=== PATIENT | male | born 1950 | race Caucasian/White ===

== ENCOUNTER 2017-05-22 15:09 | Observation (INO) | payer MEDICARE, BC ==
--- NOTE | 2017-05-22 15:13 | EDM.PDOC ---
ED HPI GENERAL MEDICAL PROBLEM - General Chief Complaint: Neuro Symptoms/Deficits Stated Complaint: POSSIBLE STROKE Time Seen by Provider: 05/22/17 15:09 Source of Information: Reports: Patient, Old Records, RN, RN Notes Reviewed History Limitations: Reports: No Limitations - History of Present Illness INITIAL COMMENTS - FREE TEXT/NARRATIVE: Patient arrived by POV after [facility] by Dr. Hernandez. States he had onset of posterior headache this morning with nausea. No vomiting. No fever. No chills. While driving downtown, he began to have decrease in vision and onset of right temporal headache, which felt like a snapping sending an electric shock through the frontal area and to the left frontal and parietal area. At that time his vision tunnelled down until it looked like he was looking through a tube no more than 2cm in diameter. This lasted several minutes and then as his vision partially improved, he drove himself to the [facility]. While there his vision returned to normal and Dr. Hernandez found no acute changes on eye exam. His vision is "nearly back to normal". His headache and nausea remains. Onset: Today Location: Reports: Head Quality: Reports: Ache Severity: Severe Improves with: Reports: None Worsens with: Reports: None Associated Symptoms: Reports: No Other Symptoms Head Pain Score (Numeric/FACES): 7 - Related Data Allergies Allergy/AdvReac Type Severity Reaction Status Date / Time No Known Allergies Allergy Verified 05/22/17 15:52 Home Meds: Home Meds Acetaminophen [Tylenol Extra Strength] 500 mg PO ASDIRECTED PRN 05/22/17 [ History] Albuterol [Proair HFA] 2 puff INH BID PRN 05/22/17 [History] Cetirizine [ZyrTEC] 10 mg PO DAILY 05/22/17 [History] Multivitamin [Multi-Day Vitamins] 1 tab PO DAILY 05/22/17 [History] Past Medical History HEENT History: Reports: None (Retinal hemorrhage.), Other (See Below) Other HEENT History: FLOATERS Cardiovascular History: Reports: None Respiratory History: Reports: SOB Musculoskeletal History: Reports: Arthritis, Back Pain, Chronic, Other (See Below) Other Musculoskeletal History: ARTHRITIS THROUGHOUT SPINE AND BILATERAL HANDS Neurological History: Reports: Concussion, Headaches, Chronic, Other (See Below) Other Neuro History: HEAD INJURY THAT TOOK TWO YEARS TO HEAL IN THE LATE 80'S Psychiatric History: Reports: None Hematologic History: Reports: None Oncologic (Cancer) History: Reports: Other (See Below) Other Oncologic History: 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 Dermatologic History: - Infectious Disease History Infectious Disease History: Reports: Chicken Pox - Past Surgical History HEENT Surgical History: Reports: Eye Surgery GI Surgical History: Reports: Colonoscopy, EGD, Hernia, Inguinal Musculoskeletal Surgical History: Reports: Knee Replacement, Other (See Below) Dermatological Surgical History: Reports: Skin Biopsy, Other (See Below) Social & Family History - Family History Family Medical History: Noncontributory - Tobacco Use Smoking Status *Q: Never Smoker Second Hand Smoke Exposure: No - Caffeine Use Caffeine Use: Reports: Coffee, Soda Other Caffeine Use: 4 CUPS OF COFFEE IN THE AM - Alcohol Use Days Per Week of Alcohol Use: 1 - Recreational Drug Use Recreational Drug Use: No Drug Use in Last 12 Months: No ED ROS GENERAL - Review of Systems Review Of Systems: ROS reveals no pertinent complaints other than HPI. ED EXAM, NEURO - Physical Exam Exam: See Below Exam Limited By: No Limitations General Appearance: Alert, WD/WN, No Apparent Distress, Other (uncomfortable appearing. ) Eye Exam: Bilateral Eye: PERRL, Other (chronic strabismus. See eye exam from Dr. Hernandez.) Ears: Normal External Exam, Normal Canal, Hearing Grossly Normal, Normal TMs Nose: Normal Inspection, Normal Mucosa, No Blood Throat/Mouth: Normal Inspection, Normal Lips, Normal Teeth, Normal Gums, Normal Oropharynx, Normal Voice, No Airway Compromise Head Exam: Atraumatic, Normocephalic Neck: Normal Inspection, Supple, Non-Tender, Full Range of Motion. No: Carotid Bruit, Lymphadenopathy (L), Lymphadenopathy (R) Respiratory/Chest: No Respiratory Distress, Lungs Clear, Normal Breath Sounds, No Accessory Muscle Use, Chest Non-Tender Cardiovascular: Normal Peripheral Pulses, Regular Rate, Rhythm, No Edema, No Gallop, No JVD, No Murmur, No Rub GI/Abdominal: Normal Bowel Sounds, Soft, Non-Tender, No Organomegaly, No Distention, No Abnormal Bruit, No Mass (Male) Exam: Deferred Rectal (Males) Exam: Deferred Neurological: Alert, Normal Mood/Affect, Normal Dorsiflexion, CN II-XII Intact, Normal Plantar Flexion, Normal Gait, Normal Reflexes, No Motor/Sensory Deficits , Oriented x 3 Back Exam: Normal Inspection, Full Range of Motion, NT Extremities: Normal Inspection, Normal Range of Motion, Non-Tender, No Pedal Edema, Normal Capillary Refill Psychiatric: Anxious Skin Exam: Warm, Dry, Intact, Normal Color, No Rash EKG INTERPRETATION EKG Date: 05/22/17 Time: 15:30 Rhythm: Other (sinus rhythm) Rate (Beats/Min): 65 [place]: Normal P-Wave: Present QRS: Normal ST-T: Normal QT: Normal Course - Vital Signs Last Recorded V/S: Last Vital Signs Temp 36.6 C 05/22/17 15:37 Pulse 64 05/22/17 15:57 Resp 16 05/22/17 15:57 BP 125/66 05/22/17 15:57 Pulse Ox 98 05/22/17 15:57 - Orders/Labs/Meds Orders: Active Orders 24 hr Category Date Time Status EKG 12 Lead [EKG Documentation Completion] [RC] STAT Care 05/22/17 15:11 Active NIH Stroke Scale [RC] ASDIRECTED Care 05/22/17 15:11 Active Peripheral IV Care [RC] . DIRECTED Care 05/22/17 15:11 Active DRUG SCREEN URINE BIORAD [URCHEM] Stat Lab 05/22/17 15:11 Uncollected ESR [SEDIMENTATION RATE MANUAL] [HEME] Stat Lab 05/22/17 15:31 Received UA W/MICROSCOPIC [URIN] Stat Lab 05/22/17 15:11 Uncollected Sodium Chloride 0.9% [Normal Saline] 1,000 ml Med 05/22/17 16:36 Active IV .BOLUS Sodium Chloride 0.9% [Saline Flush] Med 05/22/17 15:10 Active 10 ml FLUSH ASDIRECTED PRN Peripheral IV Insertion Adult [OM.PC] Stat Oth 05/22/17 15:11 Ordered Medication Orders Sodium Chloride (Normal Saline) 1,000 mls @ 999 mls/hr IV .BOLUS ONE Stop: 05/22/17 17:36 Last Admin: 05/22/17 16:44 Dose: 999 mls/hr Sodium Chloride (Saline Flush) 10 ml FLUSH ASDIRECTED PRN PRN Reason: Keep Vein Open Last Admin: 05/22/17 16:24 Dose: 10 ml Admin: 05/22/17 15:35 Dose: 10 ml Labs: Laboratory Tests 05/22/17 05/22/17 05/22/17 Range/Units 15:31 15:31 15:31 WBC 5.5 (5.0-10.0) 10^3/uL RBC 3.76 L (4.6-6.2) 10^6/uL Hgb 13.0 L (14.0-18.0) g/dL Hct 37.9 L (40.0-54.0) % MCV 100.8 H (80-100) fL MCH 34.6 H (27.0-34.0) pg MCHC 34.3 (33.0-35.0) g/dL Plt Count 117 L (150-450) 10^3/uL Neut % (Auto) 73.9 (42.2-75.2) % Lymph % (Auto) 17.5 L (20.5-50.1) % Cole % (Auto) 8.0 (2-8) % Eos % (Auto) 0.4 L (1.0-3.0) % Baso % (Auto) 0.2 (0.0-1.0) % PT 9.8 (9.0-12.0) SEC INR 1.0 (0.9-1.2) APTT 25.8 (22.0-34.0) SEC Sodium 137 (135-145) mmol/L Potassium 4.3 (3.6-5.0) mmol/L Chloride 102 (101-111) mmol/L Carbon Dioxide 26.0 (21.0-31.0) mmol/L Anion Gap 13.3 BUN 20 H (7-18) mg/dL Creatinine 1.2 (0.6-1.3) mg/dL Est Cr Clr Drug Dosing 65.56 mL/min Estimated GFR (MDRD) > 60 BUN/Creatinine Ratio 16.66 Glucose 131 H (74-105) mg/dL Calcium 9.6 (8.4-10.2) mg/dl Total Bilirubin 0.7 (0.2-1.0) mg/dL AST 29 (10-42) IU/L ALT 31 (10-60) IU/L Alkaline Phosphatase 46 (42-121) IU/L Creatine Kinase 171 (26-174) IU/L Troponin I < 0.02 (0.00-0.02) ng/ml C-Reactive Protein (0.0-1.3) mg/dL Total Protein 6.7 (6.7-8.2) g/dl Albumin 3.8 (3.2-5.5) g/dl Globulin 2.9 Albumin/Globulin Ratio 1.31 Ethyl Alcohol < 5 mg/dL 05/22/17 Range/Units 15:31 WBC (5.0-10.0) 10^3/uL RBC (4.6-6.2) 10^6/uL Hgb (14.0-18.0) g/dL Hct (40.0-54.0) % MCV (80-100) fL MCH (27.0-34.0) pg MCHC (33.0-35.0) g/dL Plt Count (150-450) 10^3/uL Neut % (Auto) (42.2-75.2) % Lymph % (Auto) (20.5-50.1) % Cole % (Auto) (2-8) % Eos % (Auto) (1.0-3.0) % Baso % (Auto) (0.0-1.0) % PT (9.0-12.0) SEC INR (0.9-1.2) APTT (22.0-34.0) SEC Sodium (135-145) mmol/L Potassium (3.6-5.0) mmol/L Chloride (101-111) mmol/L Carbon Dioxide (21.0-31.0) mmol/L Anion Gap BUN (7-18) mg/dL Creatinine (0.6-1.3) mg/dL Est Cr Clr Drug Dosing mL/min Estimated GFR (MDRD) BUN/Creatinine Ratio Glucose (74-105) mg/dL Calcium (8.4-10.2) mg/dl Total Bilirubin (0.2-1.0) mg/dL AST (10-42) IU/L ALT (10-60) IU/L Alkaline Phosphatase (42-121) IU/L Creatine Kinase (26-174) IU/L Troponin I (0.00-0.02) ng/ml C-Reactive Protein 0.8 (0.0-1.3) mg/dL Total Protein (6.7-8.2) g/dl Albumin (3.2-5.5) g/dl Globulin Albumin/Globulin Ratio Ethyl Alcohol mg/dL Meds: Medications Generic Name Dose Route Start Last Admin Trade Name Freq PRN Reason Stop Dose Admin Sodium Chloride 1,000 mls @ 999 mls/hr 05/22/17 16:36 05/22/17 16:44 Normal Saline IV 05/22/17 17:36 999 mls/hr .BOLUS ONE Administration Sodium Chloride 10 ml 05/22/17 15:10 05/22/17 16:24 Saline Flush FLUSH 10 ml ASDIRECTED PRN Administration Keep Vein Open Discontinued Medications Generic Name Dose Route Start Last Admin Trade Name Freq PRN Reason Stop Dose Admin Hydromorphone HCl 1 mg 05/22/17 16:11 05/22/17 16:24 Dilaudid IVPUSH 05/22/17 16:12 1 mg ONETIME ONE Administration Methylprednisolone Sodium Succinate 125 mg 05/22/17 16:11 05/22/17 16:23 Solu-Medrol IVPUSH 05/22/17 16:12 125 mg ONETIME ONE Administration Ondansetron HCl 4 mg 05/22/17 16:11 05/22/17 16:24 Zofran IV 05/22/17 16:12 4 mg ONETIME ONE Administration - Radiology Interpretation Free Text/Narrative:: CT head: Microvascular ischemic changes. No intracranial mass, hydrocephalus or bleed. See rad report. Departure - Departure Time of Disposition: 17:27 ((Admnit Dr. Traylor)) Disposition: Admitted As Inpatient 66 Condition: Serious Clinical Impression: Visual changes Acute headache Qualifiers: Headache type: unspecified Intractability: intractable Qualified Code(s): R51 - Headache TIA (transient ischemic attack) Qualifiers: Transient cerebral ischemia type: unspecified Qualified Code(s): G45.9 - Transient cerebral ischemic attack, unspecified - Discharge Information Forms: ED Department Discharge - My Orders Last 24 Hours: My Active Orders 05/22/17 15:10 Sodium Chloride 0.9% [Saline Flush] 10 ml FLUSH ASDIRECTED PRN 05/22/17 15:11 EKG 12 Lead [EKG Documentation Completion] [RC] STAT NIH Stroke Scale [RC] ASDIRECTED Peripheral IV Care [RC] . DIRECTED DRUG SCREEN URINE BIORAD [URCHEM] Stat UA W/MICROSCOPIC [URIN] Stat Peripheral IV Insertion Adult [OM.PC] Stat 05/22/17 15:31 ESR [SEDIMENTATION RATE MANUAL] [HEME] Stat 05/22/17 16:36 Sodium Chloride 0.9% [Normal Saline] 1,000 ml IV .BOLUS - Assessment/Plan Last 24 Hours: My Active Orders 05/22/17 15:10 Sodium Chloride 0.9% [Saline Flush] 10 ml FLUSH ASDIRECTED PRN 05/22/17 15:11 EKG 12 Lead [EKG Documentation Completion] [RC] STAT NIH Stroke Scale [RC] ASDIRECTED Peripheral IV Care [RC] . DIRECTED DRUG SCREEN URINE BIORAD [URCHEM] Stat UA W/MICROSCOPIC [URIN] Stat Peripheral IV Insertion Adult [OM.PC] Stat 05/22/17 15:31 ESR [SEDIMENTATION RATE MANUAL] [HEME] Stat 05/22/17 16:36 Sodium Chloride 0.9% [Normal Saline] 1,000 ml IV .BOLUS
[2017-05-22] MEDS: Sodium Chloride 0.9% 10 ML Syringe FLUSH PRN ×2 (15:35→16:24)
--- NOTE | 2017-05-22 15:53 | CT ---
Clinical history: 67-year-old male possible CVA (frontal headache, dizziness and visual changes). Scan technique: Volume acquisition of data emergency unenhanced CT scan of the head and brain obtain ed with patient lying supine on the Siemens multi slice scanner [facility]. All data archived in the PACS system for storage, reformatting and study (bone/brain wi ndows). Interpretation: Uniformly thick bony calvarium. Subtle mucoperiosteal thickening maxillary antra but otherwise clear pneumatization paranasal and ma stoid sinuses. Nasal septum is straight in the midline. No sign of supratentorial or posterior fossa mass lesion this patient with atrophy and underlying mi rror-image normal ventricles. Scanner microvascular ischemic changes but no cerebral edema or acute intracerebral/intraventricular /subarachnoid bleed. Cerebellum and brainstem unremarkable. No abnormal extracerebral/intracranial epidural or subdural h ematoma. CONCLUSION: Microvascular ischemic changes. No intracranial mass, hydrocephalus or bleed.
[2017-05-22 16:04] LABS: CHLORIDE,CL 102 mmol/L (101-111); SODIUM,NA 137 mmol/L (135-145)
[2017-05-22] MEDS ORDERED: methylPREDNISolone Sodium Succinate 125 MG/2 ML SDV IVPUSH ONE (16:11)
[2017-05-22] MEDS ORDERED: HYDROmorphone 1 MG/ML Syringe IVPUSH ONE (16:11)
[2017-05-22] MEDS ORDERED: Ondansetron 4 MG/2 ML SDV IV ONE (16:11)
[2017-05-22] MEDS ORDERED: Sodium Chloride 0.9% 1,000 ML IV ONE (16:36)
[2017-05-22] MEDS ORDERED: Albuterol 6.7 GM Inhaler INH PRN (17:41)
[2017-05-22] MEDS ORDERED: oxyCODONE 5 MG Tab PO PRN (17:43)
[2017-05-22] MEDS ORDERED: Ondansetron 4 MG Tab.DIS PO PRN (17:43)
[2017-05-22] MEDS ORDERED: Ibuprofen 400 MG Tab PO PRN (17:43)
[2017-05-22] MEDS ORDERED: Promethazine 25 MG Tab PO PRN (17:43)
[2017-05-22] MEDS ORDERED: Zolpidem 5 MG Tab PO PRN (17:43)
[2017-05-22] MEDS ORDERED: Morphine 2 MG/ML Syringe IVPUSH PRN (17:43)
[2017-05-22] MEDS ORDERED: Acetaminophen 325 MG Tab PO PRN (17:43)
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
[2017-05-22] MEDS: Heparin Sodium 5,000 Units/ML Vial SUBCUT SCH (22:13)
[2017-05-23] MEDS: Heparin Sodium 5,000 Units/ML Vial SUBCUT SCH (05:50)
[2017-05-23 06:56] LABS: CHLORIDE,CL 103 mmol/L (101-111); SODIUM,NA 137 mmol/L (135-145)
[2017-05-23] MEDS ORDERED: MULTIVITAMIN PO SCH (09:00)
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
[2017-05-23 12:55] VITALS: BP 136/61
--- NOTE | 2017-05-26 10:05 | EKG ---
05/22/2017- BRITTNY THAKKAR - EKG per my reading shows sinus rhythm at the rate of 65 with no acute changes. MOD /[id number]
== END 2017-05-23 11:30 | disposition home or self-care (01) ==
LOC: DL.ED 15:09 → DL.MS 17:13
PROVIDERS: ADMIT Internal Medicine; ATTEND Internal Medicine
DX: R51 Headache (principal); G45.9 Transient cerebral ischemic attack, unspecified; H53.8 Other visual disturbances; Z79.899 Other long term (current) drug therapy; Z98.890 Other specified postprocedural states; Z96.659 Presence of unspecified artificial knee joint; J30.1 Allergic rhinitis due to pollen
CPT/HCPCS: 36415; 70450; 80048; 80053; 82550; 84484; 85025; 85610; 85651; 85730; 86140; 93005; 93010; 96372; 96374; 96375; 99284; 99285; A9270; G0378; G0480; J1170; J1644; J2405; J2930; J7030; J7050

== ENCOUNTER 2018-06-17 11:28 | Emergency (ER) | payer MEDICARE, BC ==
--- NOTE | 2018-06-17 12:42 | CR ---
Clinical history: 68-year-old male pain. Interpretation: No acute cardiopulmonary abnormality. Old healed fracture left clavicle. Upright AP portable chest film (external gambling monitor leads) reveals normal cardiac silhouette wit hout cephalization of vascular flow, alveolar edema or dependent pleural fluid accumulation (left-niecy ed aortic arch). No lung mass, hilar lymphadenopathy or focal lobar pneumonia. No pneumothorax. CONCLUSION: No acute cardiopulmonary abnormality. Unchanged except for technique since 13 Mar 2008 ex am.
[2018-06-17 12:46] VITALS: BP 130/71
[2018-06-17 12:46] LABS: ANION GAP 11.7; CHLORIDE,CL 102 mmol/L (101-111); SODIUM,NA 136 mmol/L (135-145)
--- NOTE | 2018-06-17 13:08 | EDM.PDOC ---
ED HPI GENERAL MEDICAL PROBLEM - General Chief Complaint: Chest Pain Stated Complaint: SENT BY DR ROSARIO Time Seen by Provider: 06/17/18 11:52 Source of Information: Reports: Patient, RN, RN Notes Reviewed History Limitations: Reports: No Limitations - History of Present Illness INITIAL COMMENTS - FREE TEXT/NARRATIVE: Patient presents to ER with complaint of occurrences of left sided chest pain, first episode was and again over the weekend. Last episode was yesterday at noon. Thursday he rested, took Ibuprofen and resolved. Shortness of breath with chest pain. No pain at this time. No radiation of pain. Did eat spicy foods recently. He has diarrhea. No nausea, vomiting, fever or chills. Onset: Gradual Duration: Getting Worse Location: Reports: Chest Quality: Reports: Ache Severity: Mild Improves with: Reports: None Worsens with: Reports: None Associated Symptoms: Reports: No Other Symptoms - Related Data Allergies Allergy/AdvReac Type Severity Reaction Status Date / Time mold Allergy Sneezing Verified 06/17/18 11:58 canola pollen Allergy Sneezing Uncoded 06/17/18 10:06 Home Meds: Home Meds Acetaminophen [Tylenol Extra Strength] 500 mg PO BID PRN 05/22/17 [History] Multivitamin [Multi-Day Vitamins] 1 tab PO DAILY 05/22/17 [History] Cholecalciferol (Vitamin D3) [Vitamin D3] 1,000 units PO DAILY 01/22/18 [History ] Past Medical History HEENT History: Reports: None, Other (See Below) Other HEENT History: FLOATERS. 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 IN THE LATE 80S Psychiatric History: Reports: None Endocrine/Metabolic History: Reports: None Hematologic History: Reports: Anemia, Other (See Below) (thrombocytopenia) Immunologic History: Reports: None Oncologic (Cancer) History: Reports: Other (See Below) Other Oncologic History: 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 Dermatologic History: - Infectious Disease History Infectious Disease History: Reports: Chicken Pox - Past Surgical History HEENT Surgical History: Reports: Eye Surgery GI Surgical History: Reports: Colonoscopy, EGD, Hernia, Inguinal Musculoskeletal Surgical History: Reports: Knee Replacement, Other (See Below) Dermatological Surgical History: Reports: Skin Biopsy, Other (See Below) Social & Family History - Family History Family Medical History: Noncontributory - Tobacco Use Smoking Status *Q: Never Smoker - Caffeine Use Caffeine Use: Reports: Coffee Other Caffeine Use: 4 CUPS OF COFFEE IN THE AM - Recreational Drug Use Recreational Drug Use: No ED ROS GENERAL - Review of Systems Review Of Systems: ROS reveals no pertinent complaints other than HPI. ED EXAM, GENERAL - Physical Exam Exam: See Below Exam Limited By: No Limitations General Appearance: Alert Eye Exam: Bilateral Eye: Other (right eye wonders) Ears: Normal External Exam, Normal Canal, Hearing Grossly Normal, Normal TMs Nose: Normal Inspection, Normal Mucosa, No Blood Throat/Mouth: Normal Inspection, Normal Lips, Normal Teeth, Normal Gums, Normal Oropharynx, Normal Voice, No Airway Compromise Head: Atraumatic, Normocephalic Neck: Normal Inspection, Supple, Non-Tender, Full Range of Motion Respiratory/Chest: No Respiratory Distress, Lungs Clear, Normal Breath Sounds, No Accessory Muscle Use, Chest Non-Tender Cardiovascular: Normal Peripheral Pulses, Regular Rate, Rhythm, No Edema, No Gallop, No JVD, No Murmur, No Rub GI/Abdominal: Normal Bowel Sounds, Soft, Non-Tender, No Organomegaly, No Distention, No Abnormal Bruit, No Mass (Male) Exam: Deferred Rectal (Males) Exam: Deferred Back Exam: Normal Inspection, Full Range of Motion, NT Extremities: Normal Inspection, Normal Range of Motion, Non-Tender, Normal Capillary Refill, No Pedal Edema Neurological: Alert, Oriented, CN II-XII Intact, Normal Cognition, Normal Gait, Normal Reflexes, No Motor/Sensory Deficits Psychiatric: Normal Affect, Normal Mood Skin Exam: Warm, Dry, Intact, Normal Color, No Rash EKG INTERPRETATION EKG Date: 06/17/18 Time: 11:32 Rhythm: Other (sinus rhythm) Course - Vital Signs Last Recorded V/S: Last Vital Signs Temp 98 F 06/17/18 12:45 Pulse 59 L 06/17/18 12:45 Resp 15 06/17/18 12:45 BP 130/71 06/17/18 12:45 Pulse Ox 99 06/17/18 12:45 - Orders/Labs/Meds Orders: Active Orders 24 hr Category Date Time Status EKG Documentation Completion [RC] STAT Care 06/17/18 12:04 Active UA W/MICROSCOPIC [URIN] Stat Lab 06/17/18 12:45 Ordered Labs: Laboratory Tests 06/17/18 06/17/18 06/17/18 Range/Units 12:20 12:20 12:20 WBC 4.8 L (5.0-10.0) 10^3/uL RBC 3.65 L (4.6-6.2) 10^6/uL Hgb 12.5 L (14.0-18.0) g/dL Hct 37.6 L (40.0-54.0) % MCV 103.0 H (80-100) fL MCH 34.2 H (27.0-34.0) pg MCHC 33.2 (33.0-35.0) g/dL Plt Count 108 L (150-450) 10^3/uL Neut % (Auto) 75.1 (42.2-75.2) % Lymph % (Auto) 17.4 L (20.5-50.1) % [place] % (Auto) 7.1 (2-8) % Eos % (Auto) 0.2 L (1.0-3.0) % Baso % (Auto) 0.2 (0.0-1.0) % PT 10.0 (9.0-12.0) SEC INR 1.0 (0.9-1.2) Sodium 136 (135-145) mmol/L Potassium 4.7 (3.6-5.0) mmol/L Chloride 102 (101-111) mmol/L Carbon Dioxide 27.0 (21.0-31.0) mmol/L Anion Gap 11.7 BUN 24 H (7-18) mg/dL Creatinine 1.0 (0.6-1.3) mg/dL Est Cr Clr Drug Dosing 77.60 mL/min Estimated GFR (MDRD) > 60 BUN/Creatinine Ratio 24.00 Glucose 112 H (74-105) mg/dL Calcium 9.1 (8.4-10.2) mg/dl Total Bilirubin 0.7 (0.2-1.0) mg/dL AST 29 (10-42) IU/L ALT 28 (10-60) IU/L Alkaline Phosphatase 41 L (42-121) IU/L Troponin I < 0.02 (0.00-0.02) ng/ml Total Protein 6.8 (6.7-8.2) g/dl Albumin 3.9 (3.2-5.5) g/dl Globulin 2.9 Albumin/Globulin Ratio 1.34 Urine Color (YELLOW) Urine Appearance (CLEAR) Urine pH (5.0-9.0) Ur Specific [place] (1.005-1.030) Urine Protein (NEGATIVE) Urine Glucose (UA) (NEGATIVE) Urine Ketones (NEGATIVE) Urine Occult Blood (NEGATIVE) Urine Nitrite (NEGATIVE) Urine Bilirubin (NEGATIVE) Urine Urobilinogen (0.2-1.0) mg/dL Ur Leukocyte Esterase (NEGATIVE) Urine RBC /HPF Urine WBC (0-5/HPF) /HPF Ur Epithelial Cells /HPF Urine Mucus /LPF 06/17/18 Range/Units 12:45 WBC (5.0-10.0) 10^3/uL RBC (4.6-6.2) 10^6/uL Hgb (14.0-18.0) g/dL Hct (40.0-54.0) % MCV (80-100) fL MCH (27.0-34.0) pg MCHC (33.0-35.0) g/dL Plt Count (150-450) 10^3/uL Neut % (Auto) (42.2-75.2) % Lymph % (Auto) (20.5-50.1) % [place] % (Auto) (2-8) % Eos % (Auto) (1.0-3.0) % Baso % (Auto) (0.0-1.0) % PT (9.0-12.0) SEC INR (0.9-1.2) Sodium (135-145) mmol/L Potassium (3.6-5.0) mmol/L Chloride (101-111) mmol/L Carbon Dioxide (21.0-31.0) mmol/L Anion Gap BUN (7-18) mg/dL Creatinine (0.6-1.3) mg/dL Est Cr Clr Drug Dosing mL/min Estimated GFR (MDRD) BUN/Creatinine Ratio Glucose (74-105) mg/dL Calcium (8.4-10.2) mg/dl Total Bilirubin (0.2-1.0) mg/dL AST (10-42) IU/L ALT (10-60) IU/L Alkaline Phosphatase (42-121) IU/L Troponin I (0.00-0.02) ng/ml Total Protein (6.7-8.2) g/dl Albumin (3.2-5.5) g/dl Globulin Albumin/Globulin Ratio Urine Color Yellow (YELLOW) Urine Appearance Clear (CLEAR) Urine pH 7.0 (5.0-9.0) Ur Specific [place] 1.015 (1.005-1.030) Urine Protein Negative (NEGATIVE) Urine Glucose (UA) Negative (NEGATIVE) Urine Ketones Negative (NEGATIVE) Urine Occult Blood Negative (NEGATIVE) Urine Nitrite Negative (NEGATIVE) Urine Bilirubin Negative (NEGATIVE) Urine Urobilinogen 0.2 (0.2-1.0) mg/dL Ur Leukocyte Esterase Negative (NEGATIVE) Urine RBC Not seen /HPF Urine WBC Not seen (0-5/HPF) /HPF Ur Epithelial Cells Rare /HPF Urine Mucus Rare /LPF - Radiology Interpretation Free Text/Narrative:: Chest x-ray showed no cardiopulmonary abnormality. Unchanged except for technique since March 13, 2008. See rad report. Departure - Departure Time of Disposition: 13:08 Disposition: Home, Self-Care 01 Condition: Fair Clinical Impression: Nonspecific chest pain Instructions: Nonspecific Chest Pain, [id number], Angina Pectoris, Easy-to- Read Referrals: Karen Rosario MD [Primary Care Provider] - Forms: ED Department Discharge Additional Instructions: Follow up with Dr. Rosario regarding cardiac stress test Return to the ER with any further chest pain or SOB, or other problems - My Orders Last 24 Hours: My Active Orders 06/17/18 12:04 EKG Documentation Completion [RC] STAT 06/17/18 12:45 UA W/MICROSCOPIC [URIN] Stat - Assessment/Plan Last 24 Hours: My Active Orders 06/17/18 12:04 EKG Documentation Completion [RC] STAT 06/17/18 12:45 UA W/MICROSCOPIC [URIN] Stat
== END 2018-06-17 14:25 | disposition home or self-care (01) ==
LOC: DL.ED 11:28
DX: R07.9 Chest pain, unspecified (principal); Z79.899 Other long term (current) drug therapy; Z91.018 Allergy to other foods; Z91.09 Other allergy status, other than to drugs and biological substances
CPT/HCPCS: 36415; 71045; 80053; 81001; 84484; 85025; 85610; 93005; 93010; 99285

== ENCOUNTER 2021-05-02 14:12 | Emergency (ER) | payer MEDICARE, BC ==
[2021-05-02 14:33] VITALS: BP 134/71; PULSE 72
--- NOTE | 2021-05-02 15:04 | EDM.PDOC ---
ED HPI GENERAL MEDICAL PROBLEM - General Chief Complaint: Gastrointestinal Problem Stated Complaint: SENT TO ER FROM DR. ARMSTRONG /STOMACH Time Seen by Provider: 05/02/21 14:50 Source of Information: Reports: Patient History Limitations: Reports: No Limitations - History of Present Illness INITIAL COMMENTS - FREE TEXT/NARRATIVE: This 71 yo male patient was sent to the ED from the [facility] due to lower abdominal pain and dizziness. The patient reports his symptoms started today and have been getting worse throughout the day. The patient reports he had 2 small bowel movements today, but has not eaten much today. The patient reports no history of abdominal surgeries. The patient reports he was not feeling lightheaded at the time of the examination. Onset: Today Duration: Constant Location: Reports: Abdomen (lower) Quality: Reports: Ache, Dull Severity: Moderate Improves with: Reports: None Worsens with: Reports: None Context: Reports: Other Associated Symptoms: Reports: Loss of Appetite Bilateral Lower Abdominal Pain Score (Numeric/FACES): 8 - Related Data Allergies Allergy/AdvReac Type Severity Reaction Status Date / Time mold Allergy Sneezing Verified 05/02/21 14:36 canola pollen Allergy Sneezing Uncoded 05/02/21 14:36 Home Meds: Home Meds Acetaminophen [Tylenol Extra Strength] 500 mg PO BID PRN 05/22/17 [History] Multivitamin [Multi-Day Vitamins] 1 tab PO DAILY 05/22/17 [History] Cholecalciferol (Vitamin D3) [Vitamin D3] 1,000 units PO DAILY 01/22/18 [History] Ibuprofen 200 mg PO ASDIRECTED 06/23/18 [History] Past Medical History HEENT History: Reports: Other (See Below) Other HEENT History: FLOATERS. 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 IN THE LATE S Psychiatric History: Reports: None Endocrine/Metabolic History: Reports: None Hematologic History: Reports: Anemia, B12 Deficiency Immunologic History: Reports: None Oncologic (Cancer) History: Reports: Other (See Below) Other Oncologic History: 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 Dermatologic History: Reports: None - Infectious Disease History Infectious Disease History: Reports: None Other Infectious Disease History: DOES NOT RECALL - Past Surgical History Head Surgeries/Procedures: Reports: None HEENT Surgical History: Reports: Eye Surgery Other HEENT Surgeries/Procedures: 'LAZY EYE CORRECTION' IN 1991 Cardiovascular Surgical History: Reports: None Respiratory Surgical History: Reports: None GI Surgical History: Reports: Colonoscopy, EGD, Hernia, Inguinal Male Surgical History: Reports: None Endocrine Surgical History: Reports: None Neurological Surgical History: Reports: None Musculoskeletal Surgical History: Reports: Knee Replacement, Other (See Below) Other Musculoskeletal Surgeries/Procedures:: TOTAL RIGHT KNEE Oncologic Surgical History: Reports: None Dermatological Surgical History: Reports: Skin Biopsy, Other (See Below) Social & Family History - Family History Family Medical History: No Pertinent Family History - Tobacco Use Tobacco Use Status *Q: Never Tobacco User Second Hand Smoke Exposure: No - Caffeine Use Caffeine Use: Reports: Coffee, Soda Other Caffeine Use: 4 CUPS OF COFFEE IN THE AM - Recreational Drug Use Recreational Drug Use: No ED ROS GENERAL - Review of Systems Review Of Systems: Comprehensive ROS is negative, except as noted in HPI. ED EXAM, GI/ABD - Physical Exam Exam: See Below Exam Limited By: No Limitations General Appearance: Alert, WD/WN, Moderate Distress Eyes: Bilateral: Normal Appearance, EOMI Ears: Normal External Exam, Normal Canal, Hearing Grossly Normal, Normal TMs Nose: Normal Inspection, Normal Mucosa, No Blood Throat/Mouth: Normal Inspection, Normal Lips, Normal Teeth, Normal Gums, Normal Oropharynx, Normal Voice, No Airway Compromise Head: Atraumatic, Normocephalic Neck: Normal Inspection, Supple, Non-Tender, Full Range of Motion Respiratory/Chest: No Respiratory Distress, Lungs Clear, Normal Breath Sounds, No Accessory Muscle Use, Chest Non-Tender Cardiovascular: Normal Peripheral Pulses, Regular Rate, Rhythm, No Edema, No Gallop, No JVD, No Murmur, No Rub GI/Abdominal Exam: Normal Bowel Sounds, Tender (lower abdomen both right sided and left sided) (Male) Exam: Deferred Rectal (Males) Exam: Deferred Back Exam: Normal Inspection, Full Range of Motion, NT Extremities: Normal Inspection, Normal Range of Motion, Non-Tender, Normal Capillary Refill, No Pedal Edema Neurological: Alert, Oriented, CN II-XII Intact, Normal Cognition, Normal Gait, Normal Reflexes, No Motor/Sensory Deficits Psychiatric: Normal Affect, Normal Mood Skin Exam: Warm, Dry, Intact, Normal Color, No Rash Lymphatic: No Adenopathy #1 Interpretation EKG Date: 05/02/21 Time: 14:51 Rhythm: NSR Rate (Beats/Min): 66 [place]: Normal P-Wave: Present QRS: Normal ST-T: Normal QT: Normal Comparison: No Change Course - Vital Signs Last Recorded V/S: Last Vital Signs Temp 98.9 F 05/02/21 14:32 Pulse 72 05/02/21 14:32 Resp 16 05/02/21 14:32 BP 134/71 05/02/21 14:32 Pulse Ox 94 L 05/02/21 14:32 - Orders/Labs/Meds Orders: Active Orders 24 hr Category Date Time Status EKG Documentation Completion [RC] STAT Care 05/02/21 14:52 Active CULTURE BLOOD [BC] Stat Lab 05/02/21 14:50 Results Labs: Laboratory Tests 05/02/21 05/02/21 05/02/21 Range/Units 14:25 14:50 14:50 WBC 8.4 (5.0-10.0) 10^3/uL RBC 3.74 L (4.6-6.2) 10^6/uL Hgb 12.9 L (14.0-18.0) g/dL Hct 37.8 L (40.0-54.0) % MCV 101.1 H (80-100) fL MCH 34.5 H (27.0-34.0) pg MCHC 34.1 (33.0-35.0) g/dL Plt Count 99 L (150-450) 10^3/uL Neut % (Auto) 82.2 H (42.2-75.2) % Lymph % (Auto) 10.6 L (20.5-50.1) % [place] % (Auto) 6.7 (2-8) % Eos % (Auto) 0.4 L (1.0-3.0) % Baso % (Auto) 0.1 (0.0-1.0) % Sodium 139 (136-145) mmol/L Potassium 4.0 (3.5-5.1) mmol/L Chloride 103 (98-107) mmol/L Carbon Dioxide 28 (21-32) mmol/L Anion Gap 12.0 (7-13) mEq/L BUN 14 (7-18) mg/dL Creatinine 0.94 (0.70-1.30) mg/dL Est Cr Clr Drug Dosing 76.77 mL/min Estimated GFR (MDRD) > 60 BUN/Creatinine Ratio 14.9 (No establ ref range) Glucose 146 H (70-99) mg/dL Lactic Acid (0.4-2.0) mmol/L Calcium 8.9 (8.5-10.1) mg/dL Total Bilirubin 1.0 (0.2-1.0) mg/dL AST 18 (15-37) U/L ALT 33 (16-63) U/L Alkaline Phosphatase 54 (46-116) U/L Troponin I High Sens (<=76) pg/mL Total Protein 7.0 (6.4-8.2) g/dL Albumin 3.6 (3.4-5.0) g/dL Globulin 3.4 Albumin/Globulin Ratio 1.1 Amylase 31 (25-115) U/L Lipase 111 (73-393) U/L Urine Color Yellow (YELLOW) Urine Appearance Clear (CLEAR) Urine pH 6.0 (5.0-9.0) Ur Specific [place] 1.015 (1.005-1.030) Urine Protein Negative (NEGATIVE) Urine Glucose (UA) Negative (NEGATIVE) Urine Ketones Negative (NEGATIVE) Urine Occult Blood Trace-intact H (NEGATIVE) Urine Nitrite Negative (NEGATIVE) Urine Bilirubin Negative (NEGATIVE) Urine Urobilinogen 0.2 (0.2-1.0) mg/dL Ur Leukocyte Esterase Negative (NEGATIVE) Urine RBC 0-5 /HPF Urine WBC 0-5 (0-5/HPF) /HPF Ur Epithelial Cells Rare (NOT SEEN) /HPF Amorphous Sediment Rare (NOT SEEN) /HPF Urine Bacteria Rare (0-FEW/HPF) /HPF Urine Mucus Rare (NOT SEEN) /LPF 05/02/21 05/02/21 Range/Units 14:50 14:50 WBC (5.0-10.0) 10^3/uL RBC (4.6-6.2) 10^6/uL Hgb (14.0-18.0) g/dL Hct (40.0-54.0) % MCV (80-100) fL MCH (27.0-34.0) pg MCHC (33.0-35.0) g/dL Plt Count (150-450) 10^3/uL Neut % (Auto) (42.2-75.2) % Lymph % (Auto) (20.5-50.1) % [place] % (Auto) (2-8) % Eos % (Auto) (1.0-3.0) % Baso % (Auto) (0.0-1.0) % Sodium (136-145) mmol/L Potassium (3.5-5.1) mmol/L Chloride (98-107) mmol/L Carbon Dioxide (21-32) mmol/L Anion Gap (7-13) mEq/L BUN (7-18) mg/dL Creatinine (0.70-1.30) mg/dL Est Cr Clr Drug Dosing mL/min Estimated GFR (MDRD) BUN/Creatinine Ratio (No establ ref range) Glucose (70-99) mg/dL Lactic Acid 0.8 (0.4-2.0) mmol/L Calcium (8.5-10.1) mg/dL Total Bilirubin (0.2-1.0) mg/dL AST (15-37) U/L ALT (16-63) U/L Alkaline Phosphatase (46-116) U/L Troponin I High Sens 7 (<=76) pg/mL Total Protein (6.4-8.2) g/dL Albumin (3.4-5.0) g/dL Globulin Albumin/Globulin Ratio Amylase (25-115) U/L Lipase (73-393) U/L Urine Color (YELLOW) Urine Appearance (CLEAR) Urine pH (5.0-9.0) Ur Specific [place] (1.005-1.030) Urine Protein (NEGATIVE) Urine Glucose (UA) (NEGATIVE) Urine Ketones (NEGATIVE) Urine Occult Blood (NEGATIVE) Urine Nitrite (NEGATIVE) Urine Bilirubin (NEGATIVE) Urine Urobilinogen (0.2-1.0) mg/dL Ur Leukocyte Esterase (NEGATIVE) Urine RBC /HPF Urine WBC (0-5/HPF) /HPF Ur Epithelial Cells (NOT SEEN) /HPF Amorphous Sediment (NOT SEEN) /HPF Urine Bacteria (0-FEW/HPF) /HPF Urine Mucus (NOT SEEN) /LPF Meds: Medications Discontinued Medications Generic Name Dose Route Start Last Admin Trade Name Fabricio PRN Reason Stop Dose Admin Iopamidol 100 ml 05/02/21 16:15 Iopamidol 612 Mg/Ml 100 Ml Bottle IVPUSH 05/02/21 16:16 ONETIME ONE - Re-Assessments/Exams Free Text/Narrative Re-Assessment/Exam: 05/02/21 16:19 The patient was advised of the lab results and an order was placed for a CT of the patient's abdomen and pelvis. Departure - Departure Time of Disposition: 17:20 Disposition: Home, Self-Care 01 Condition: Fair Clinical Impression: Diverticulitis - Discharge Information *PRESCRIPTION DRUG MONITORING PROGRAM REVIEWED*: Not Applicable *COPY OF PRESCRIPTION DRUG MONITORING REPORT IN PATIENT BERENICE: Not Applicable Instructions: Diverticulitis, [id number] Forms: ED Department Discharge Care Plan Goals: The patient was advised of the examination, lab and CT results during the visit. The patient was discharged with a script for Cipro (500 mg) #20 to take 1 by mouth 2 times per day for 10 days and Metronidazole (500 mg) #30 to take 1 by mouth 3 times per day for 10 days. If the patient has any additional symptoms or concerns, the patient should either return to the emergency department or visit his primary care facility. Sepsis Event Note (ED) - Evaluation Sepsis Screening Result: No Definite Risk - Focused Exam Vital Signs: Vital Signs Temp Pulse Resp BP Pulse Ox 05/02/21 14:32 98.9 F 72 16 134/71 94 L - My Orders Last 24 Hours: My Active Orders 05/02/21 14:50 CULTURE BLOOD [BC] Stat 05/02/21 14:52 EKG Documentation Completion [RC] STAT - Assessment/Plan Last 24 Hours: My Active Orders 05/02/21 14:50 CULTURE BLOOD [BC] Stat 05/02/21 14:52 EKG Documentation Completion [RC] STAT
[2021-05-02 15:19] LABS: CHLORIDE,CL 103 mmol/L (98-107); SODIUM,NA 139 mmol/L (136-145)
[2021-05-02] MEDS ORDERED: Iopamidol 612 MG/ML 100 ML Bottle IVPUSH ONE (16:15)
--- NOTE | 2021-05-02 17:13 | CT ---
PROCEDURE INFORMATION: Exam: CT Abdomen And Pelvis With Contrast Exam date and time: 05/02/2021 4:33 PM Age: 71 years old Clinical indication: Other: Pain--wbc 8.4; Additional info: Lower abdominal pain/tenderness TECHNIQUE: Imaging protocol: Computed tomography of the abdomen and pelvis with contrast. Radiation optimization: All CT scans at this facility use at least one of these dose optimization techniques: automated exposure control; mA and/or kV adjustment per patient size (includes targeted exams where dose is matched to clinical indication); or iterative reconstruction. Contrast material: [id number]; Contrast volume: 100 ml; Contrast route: INTRAVENOUS (IV); COMPARISON: CT Abdomen Pelvis w Cont 04/25/2019 10:47 AM FINDINGS: Lungs: The visualized lung bases are clear. Mediastinal space: A large hiatal hernia is present. Liver: The liver is normal. Gallbladder and bile ducts: Multiple gallstones are identified. There is no wall thickening or pericholecystic fluid to suggest cholecystitis. There is no evidence of biliary ductal dilation. Pancreas: The pancreas is normal. Spleen: The spleen is normal. Adrenal glands: The adrenal glands are normal. Kidneys and ureters: The kidneys are normal. No hydronephrosis. No visible calculi. Stomach and bowel: Severe diffuse diverticulosis is present in the colon. Appendix: A normal appendix is identified. Intraperitoneal space: There is minimal inflammatory change about a short segment of proximal sigmoid, this reflects subtle change from the prior study. Vasculature: There is mild diffuse calcific atherosclerotic plaque. There is no aortic aneurysm. Lymph nodes: There is no adenopathy. Urinary bladder: There is moderate bladder wall thickening consistent with incomplete distension, chronic outflow obstruction, or cystitis. Reproductive: The prostate and seminal vesicles are normal. Bones/joints: No acute bony findings are identified. Soft tissues: There is no soft tissue abnormality seen. IMPRESSION: 1. Findings suspect for mild/early acute diverticulitis in the sigmoid colon. This subtle inflammatory change was not readily apparent on the prior study. 2. No free air. No free fluid. No visible abscess. 3. Underlying colonic malignancy cannot be excluded. Consider elective colonoscopy when patient's acute symptoms have resolved. 4. Cholelithiasis. 5. Large hiatal hernia 6. Abnormal bladder wall as described. Correlate with urinalysis. If hematuria is present additional evaluation, possibly to include direct visualization, to exclude occult carcinoma should be considered.
== END 2021-05-02 17:30 | disposition home or self-care (01) ==
LOC: DL.ED 14:12
DX: K57.32 Diverticulitis of large intestine without perforation or abscess without bleeding (principal); Z91.09 Other allergy status, other than to drugs and biological substances
CPT/HCPCS: 36415; 74177; 80053; 81001; 82150; 83605; 83690; 84484; 85025; 87040; 93005; 99284-25

== ENCOUNTER 2022-03-03 05:53 | Day surgery (SDC) | payer MEDICARE, BC ==
[~2022-03-03 05:53] MED LIST: Midazolam 1 MG/ML 2 ML SDV ONE; fentaNYL 100 MCG/2 ML SDV ONE
[2022-03-03] MEDS ORDERED: fentaNYL 100 MCG/2 ML SDV IV ONE ×3 (05:54→07:42)
[2022-03-03] MEDS ORDERED: Midazolam 1 MG/ML 2 ML SDV IV ONE ×4 (05:54→07:47)
[2022-03-03] MEDS ORDERED: Dextrose 5%-0.45% NaCl 1,000 ML IV SCH (06:00)
[2022-03-03 08:06] VITALS: PULSE 58
[2022-03-03 09:59] VITALS: BP 114/60
== END 2022-03-03 10:08 | disposition home or self-care (01) ==
LOC: DL.ENDO 05:53
PROVIDERS: ATTEND Internal Medicine Gastroenterology
DX: Z12.11 Encounter for screening for malignant neoplasm of colon (principal); K64.8 Other hemorrhoids; D64.9 Anemia, unspecified; E66.09 Other obesity due to excess calories; K43.9 Ventral hernia without obstruction or gangrene; D69.6 Thrombocytopenia, unspecified; R73.9 Hyperglycemia, unspecified; Z68.31 Body mass index [BMI] 31.0-31.9, adult; Z98.890 Other specified postprocedural states; Z01.812 Encounter for preprocedural laboratory examination; Z20.822 Contact with and (suspected) exposure to COVID-19
CPT/HCPCS: J2250; J3010; J7042; U0002

== ENCOUNTER 2023-08-01 08:47 | Emergency (ER) | payer MEDICARE, BC ==
[2023-08-01] MEDS ORDERED: Morphine 4 MG/ML Syringe IVPUSH ONE ×2 (09:28→13:14)
[2023-08-01] MEDS ORDERED: Ondansetron 4 MG/2 ML SDV IVPUSH ONE ×2 (09:28→13:14)
[2023-08-01 09:33] LABS: HEMATOCRIT 37.7 % (40.0-54.0); HEMOGLOBIN 12.7 g/dL (14.0-18.0); MEAN CORPUSCULAR HEMOGLOBIN 34.4 pg (27.0-34.0); MEAN CORPUSCULAR HGB CONC 33.7 g/dL (33.0-35.0); MEAN CORPUSCULAR VOLUME 102.2 fL (80-100); PLATELET COUNT,PLT 95 10^3/uL (150-450); RED BLOOD CELL COUNT 3.69 10^6/uL (4.6-6.2); WHITE BLOOD CELL COUNT,WBC 9.3 10^3/uL (5.0-10.0)
[2023-08-01 09:41] LABS: BASOPHILS PERCENT AUTO 0.2 % (0.0-1.0); LYMPHOCYTES PERCENT AUTO 5.3 % (20.5-50.1); MONOCYTES PERCENT AUTO 4.2 % (2-8); NEUTROPHILS PERCENT AUTO 90.3 % (42.2-75.2)
[2023-08-01] MEDS ORDERED: Lactated Ringers 1,000 ML IV SCH ×2 (09:45→11:45)
[2023-08-01 09:47] LABS: A/G RATIO 0.9; ALBUMIN 3.5 g/dL (3.4-5.0); BUN/CREATININE RATIO 14.7 (No establ ref range); CALCIUM 9.6 mg/dL (8.5-10.1); CREATININE 0.95 mg/dL (0.70-1.30); EST CRCL DRUG DOSING (CG) 73.76 mL/min; PROTEIN TOTAL,TP 7.3 g/dL (6.4-8.2)
[2023-08-01] MEDS ORDERED: Iopamidol 612 MG/ML 100 ML Bottle IVPUSH ONE (10:03)
[2023-08-01 10:05] LABS: LYMPHOCYTES PERCENT MAN 3 % (20-50); MONOCYTES PERCENT MAN 3 % (2-8); SEG NEUTROPHILS PERCENT MAN 94 % (42-75)
[2023-08-01] MEDS ORDERED: Lactated Ringers 1,000 ML IV ONE (11:50)
[2023-08-01 12:02] LABS: PROTHROMBIN TIME 9.9 SEC (9.0-12.0)
[2023-08-01 12:03] VITALS: BP 127/78
[2023-08-01 12:04] VITALS: PULSE 66
[2023-08-01] MEDS ORDERED: Naloxone 2 MG/2 ML Syringe IVPUSH PRN (13:14)
== END 2023-08-01 13:30 ==
LOC: DL.ED 08:47
DX: K81.0 Acute cholecystitis (principal); Z91.048 Other nonmedicinal substance allergy status
CPT/HCPCS: 36415; 74177; 80053; 83690; 85025; 85610; 96361; 96374; 96375; 96376; 99284; 99285; J2270; J2405; J7120; Q9967

== ENCOUNTER 2024-10-06 15:32 | Emergency (ER) | payer MEDICARE, BC ==
[2024-10-06] MEDS ORDERED: Sodium Chloride 0.9% 10 ML Syringe FLUSH PRN (15:47)
[2024-10-06 16:01] LABS: BASOPHILS PERCENT AUTO 0.3 % (0.0-1.0); EOSINOPHILS PERCENT AUTO 0.6 % (1.0-3.0); HEMATOCRIT 34.9 % (40.0-54.0); HEMOGLOBIN 11.5 g/dL (14.0-18.0); LYMPHOCYTES PERCENT AUTO 11.3 % (20.5-50.1); MEAN CORPUSCULAR HEMOGLOBIN 34.2 pg (27.0-34.0); MEAN CORPUSCULAR VOLUME 103.9 fL (80-100); MONOCYTES PERCENT AUTO 8.1 % (2-8); NEUTROPHILS PERCENT AUTO 79.7 % (42.2-75.2); PLATELET COUNT,PLT 120 10^3/uL (150-450); RED BLOOD CELL COUNT 3.36 10^6/uL (4.6-6.2); WHITE BLOOD CELL COUNT,WBC 6.2 10^3/uL (5.0-10.0)
[2024-10-06 16:19] LABS: PROTHROMBIN TIME 10.2 SEC (9.0-12.0); PTT,PARTIAL THROMBOPLSTIN TIME 28.1 SEC (22.0-34.0)
[2024-10-06 16:21] LABS: A/G RATIO 0.79; ANION GAP 9.9 mEq/L (7-13); BILIRUBIN TOTAL 0.4 mg/dL (0.2-1.0); BUN/CREATININE RATIO 16.7 (No establ ref range); CALCIUM 8.6 mg/dL (8.5-10.1); CREATININE 1.08 mg/dL (0.70-1.30); EST CRCL DRUG DOSING (CG) 65.86 mL/min; POTASSIUM,K 4.9 mmol/L (3.5-5.1); PROTEIN TOTAL,TP 6.8 g/dL (6.4-8.2)
[2024-10-06 16:55] LABS: APPEARANCE,URINE CLEAR (CLEAR); BILIRUBIN,URINE NEGATIVE (NEGATIVE); COLOR,URINE YELLOW (YELLOW); GLUCOSE,URINE NEGATIVE (NEGATIVE); KETONES,URINE NEGATIVE (NEGATIVE); LEUKOCYTE ESTERASE,URINE NEGATIVE (NEGATIVE); NITRITE,URINE NEGATIVE (NEGATIVE); OCCULT BLOOD,URINE NEGATIVE (NEGATIVE); PH,URINE 5.5 (5.0-9.0); PROTEIN,URINE NEGATIVE (NEGATIVE)
[2024-10-06] MEDS: Iopamidol 612 MG/ML 100 ML Bottle IVPUSH ONE (18:40)
[2024-10-06] MEDS: Fluconazole 100 MG Tab PO ONE (21:26)
[2024-10-06] MEDS: cefTRIAXone 1 GM Vial IVPUSH ONE (21:26)
[2024-10-06 21:46] VITALS: BP 132/67; PULSE 78
== END 2024-10-06 21:40 | disposition home or self-care (01) ==
LOC: DL.ED 15:32
DX: N49.2 Inflammatory disorders of scrotum (principal); E13.9 Other specified diabetes mellitus without complications; Z96.659 Presence of unspecified artificial knee joint; Z91.048 Other nonmedicinal substance allergy status; Z79.899 Other long term (current) drug therapy
CPT/HCPCS: 36415; 71046; 74177; 76870; 80053; 81003; 83605; 83880; 85025; 85610; 85730; 87428; 96374; 99284; A9270; J0696; Q9967

== ENCOUNTER 2024-10-08 10:06 | Emergency (ER) | payer MEDICARE, BC ==
[2024-10-08] MEDS: Iopamidol 612 MG/ML 100 ML Bottle IVPUSH ONE (10:31)
[2024-10-08] MEDS: Sodium Chloride 0.9% 10 ML Syringe FLUSH PRN (10:40)
[2024-10-08 10:44] LABS: BASOPHILS PERCENT AUTO 0.2 % (0.0-1.0); EOSINOPHILS PERCENT AUTO 0.5 % (1.0-3.0); HEMATOCRIT 35.4 % (40.0-54.0); HEMOGLOBIN 11.7 g/dL (14.0-18.0); LYMPHOCYTES PERCENT AUTO 5.9 % (20.5-50.1); MEAN CORPUSCULAR HEMOGLOBIN 34.3 pg (27.0-34.0); MEAN CORPUSCULAR HGB CONC 33.1 g/dL (33.0-35.0); MEAN CORPUSCULAR VOLUME 103.8 fL (80-100); MONOCYTES PERCENT AUTO 6.8 % (2-8); NEUTROPHILS PERCENT AUTO 86.6 % (42.2-75.2); PLATELET COUNT,PLT 121 10^3/uL (150-450); RED BLOOD CELL COUNT 3.41 10^6/uL (4.6-6.2); WHITE BLOOD CELL COUNT,WBC 8.5 10^3/uL (5.0-10.0)
[2024-10-08 11:01] LABS: ANION GAP 13.7 mEq/L (7-13); C-REACTIVE PROTEIN 16.45 ng/dL (<=0.50); CALCIUM 8.7 mg/dL (8.5-10.1); EST CRCL DRUG DOSING (CG) 62.7 mL/min; MAGNESIUM 1.9 mg/dL (1.8-2.4); POTASSIUM,K 4.7 mmol/L (3.5-5.1)
[2024-10-08] MEDS ORDERED: Piperacillin/Tazobactam 4.5 GM in Sodium Chloride 0.9% 100 ML IV ONE (11:04)
[2024-10-08] MEDS: Clindamycin in 0.9 % Sod Chlor 600 MG in Premix Bag 1 BAG IV ONE (11:12)
[2024-10-08] MEDS ORDERED: Naloxone 2 MG/2 ML Syringe IVPUSH PRN (11:46)
[2024-10-08] MEDS: Morphine 2 MG/ML SYRINGE IVPUSH ONE (11:57)
[2024-10-08 12:06] LABS: LACTIC ACID 1.4 mmol/L (0.4-2.0)
[2024-10-08] MEDS: VANCOmycin 1.75 GM/350 ML 1.75 GM in Premix Bag 1 BAG IV ONE (12:14)
[2024-10-08 12:41] LABS: APPEARANCE,URINE CLEAR (CLEAR); BILIRUBIN,URINE NEGATIVE (NEGATIVE); COLOR,URINE YELLOW (YELLOW); GLUCOSE,URINE 250 (NEGATIVE); KETONES,URINE NEGATIVE (NEGATIVE); LEUKOCYTE ESTERASE,URINE NEGATIVE (NEGATIVE); NITRITE,URINE NEGATIVE (NEGATIVE); OCCULT BLOOD,URINE TRACE-INTACT (NEGATIVE); PROTEIN,URINE NEGATIVE (NEGATIVE)
[2024-10-08 13:02] LABS: BACTERIA,URINE FEW /HPF (0-FEW/HPF); EPITHELIAL CELLS,URINE RARE /HPF (NOT SEEN); MUCUS,URINE FEW /LPF (NOT SEEN); WBC,URINE 0-5 /HPF (0-5/HPF)
[2024-10-08 13:06] VITALS: BP 142/72; PULSE 68
[2024-10-08] MEDS: Lidocaine 2% Jelly 10 ML Urojet MUCMEM ONE (13:10)
== END 2024-10-08 13:06 ==
LOC: DL.ED 10:06
DX: N49.2 Inflammatory disorders of scrotum (principal); K21.9 Gastro-esophageal reflux disease without esophagitis; E11.9 Type 2 diabetes mellitus without complications; Z96.659 Presence of unspecified artificial knee joint; Z91.048 Other nonmedicinal substance allergy status; Z79.899 Other long term (current) drug therapy
CPT/HCPCS: 36415; 51702; 72193; 80048; 81001; 83605; 83735; 85025; 86140; 87040; 96365; 96367; 96368; 96375; 99284; 99285; A9270; J0457; J2270; J3372; J3490; Q9967

== ENCOUNTER 2024-11-10 14:24 | Emergency (ER) | payer MEDICARE, BC ==
[2024-11-10 15:14] VITALS: BP 112/50; PULSE 89
[2024-11-10 15:40] LABS: BASOPHILS PERCENT AUTO 0.2 % (0.0-1.0); EOSINOPHILS PERCENT AUTO 0.9 % (1.0-3.0); HEMATOCRIT 25.2 % (40.0-54.0); HEMOGLOBIN 7.4 g/dL (14.0-18.0); LYMPHOCYTES PERCENT AUTO 6.1 % (20.5-50.1); MEAN CORPUSCULAR HEMOGLOBIN 30.5 pg (27.0-34.0); MEAN CORPUSCULAR HGB CONC 29.4 g/dL (33.0-35.0); MEAN CORPUSCULAR VOLUME 103.7 fL (80-100); MONOCYTES PERCENT AUTO 5.7 % (2-8); NEUTROPHILS PERCENT AUTO 87.1 % (42.2-75.2); PLATELET COUNT,PLT 240 10^3/uL (150-450); RED BLOOD CELL COUNT 2.43 10^6/uL (4.6-6.2); WHITE BLOOD CELL COUNT,WBC 12.9 10^3/uL (5.0-10.0)
[2024-11-10] MEDS: cefTRIAXone 2 GM Vial IVPUSH ONE (15:58)
[2024-11-10 16:32] LABS: ALANINE AMINOTRANSFERASE,ALT 27 U/L (16-63); ALBUMIN 1.7 g/dL (3.4-5.0); ALKALINE PHOSPHATASE 104 U/L (46-116); ANION GAP 9.7 mEq/L (7-13); ASPARTATE AMNIOTRANSFERASE,AST 22 U/L (15-37); BILIRUBIN TOTAL 0.3 mg/dL (0.2-1.0); BLOOD UREA NITROGEN,BUN 15 mg/dL (7-18); BUN/CREATININE RATIO 14.2 (No establ ref range); CARBON DIOXIDE,CO2 32 mmol/L (21-32); CHLORIDE,CL 100 mmol/L (98-107); CREATININE 1.06 mg/dL (0.70-1.30); GLUCOSE RANDOM 185 mg/dL (70-99); POTASSIUM,K 3.7 mmol/L (3.5-5.1); PROTEIN TOTAL,TP 6.6 g/dL (6.4-8.2); SODIUM,NA 138 mmol/L (136-145)
[2024-11-10 16:37] LABS: LACTIC ACID 1.4 mmol/L (0.4-2.0)
[2024-11-10 16:39] LABS: A/G RATIO 0.35; ESTIMATED GFR 74 mL/min (>=60)
[2024-11-10 18:31] LABS: RETICULOCYTE COUNT PERCENT 2 % (0.5-1.5)
[2024-11-10] MEDS: Iron Polysaccharides Complex 150 MG Cap PO ONE (18:45)
== END 2024-11-10 18:53 | disposition home or self-care (01) ==
LOC: DL.ED 14:24
DX: L03.116 Cellulitis of left lower limb (principal); D50.9 Iron deficiency anemia, unspecified; I50.9 Heart failure, unspecified; Z91.048 Other nonmedicinal substance allergy status; Z79.899 Other long term (current) drug therapy
CPT/HCPCS: 36415; 73620; 80053; 82272; 83540; 83550; 83605; 83615; 85025; 85045; 87040; 96374; 99283; 99284; A9270; J0696